=== PATIENT | female | born 1955 | race Hispanic/Latino ===

== ENCOUNTER → 2018-04-24 | Outpatient (CLI) | payer OTHER | END | disposition home or self-care (01) | LOC: RAH 07:31 | PROVIDERS: ATTEND Internal Medicine | DX: Z12.31 Encounter for screening mammogram for malignant neoplasm of breast (principal) | CPT/HCPCS: 77067 ==

== ENCOUNTER → 2018-08-05 | Outpatient (CLI) | payer OTHER | END | disposition home or self-care (01) | LOC: RAH 09:22 | PROVIDERS: ATTEND Internal Medicine | DX: M19.011 Primary osteoarthritis, right shoulder (principal) | CPT/HCPCS: 73030 ==

== ENCOUNTER → 2019-01-13 | Outpatient (CLI) | payer OTHER, MEDICARE | END | disposition home or self-care (01) | LOC: RAH 10:34 | PROVIDERS: ATTEND Internal Medicine | DX: M17.11 Unilateral primary osteoarthritis, right knee (principal); M16.11 Unilateral primary osteoarthritis, right hip; L08.9 Local infection of the skin and subcutaneous tissue, unspecified; T14.8XXD Other injury of unspecified body region, subsequent encounter; X58.XXXD Exposure to other specified factors, subsequent encounter | CPT/HCPCS: 73552; 73562 ==

== ENCOUNTER → 2019-08-30 | Outpatient (CLI) | payer OTHER, MEDICARE | END | disposition home or self-care (01) | LOC: RAH 08:46 | PROVIDERS: ATTEND Internal Medicine | DX: Z12.31 Encounter for screening mammogram for malignant neoplasm of breast (principal); N64.89 Other specified disorders of breast | CPT/HCPCS: 77067 ==

== ENCOUNTER → 2020-01-10 | Outpatient (CLI) | payer OTHER, MEDICARE | END | disposition home or self-care (01) | LOC: RAH 16:33 | PROVIDERS: ATTEND Internal Medicine | DX: M54.9 Dorsalgia, unspecified (principal) ==

== ENCOUNTER 2020-02-27 22:16 | Observation (INO) | payer OTHER, MEDICARE ==
[~2020-02-27] VITALS: Ht 160.2 cm; Wt 90.7 kg
[2020-02-27] MEDS ORDERED: ASPIRIN 81MG TAB.CHEW ONE (22:26)
[2020-02-27] MEDS ORDERED: NITROGLYCERIN 0.4 MG SL TAB SL ONE (22:28)
[2020-02-27] MEDS ORDERED: ACETAMINOPHEN EXTRA STRENGTH 500 MG TABLET ONE (22:28)
[2020-02-27 22:33] LABS: BASOPHILS % (AUTO) 0.6 % (0.0-5.0); EOSINOPHILS % (AUTO) 1.7 % (0.0-8.0); HEMATOCRIT 38.4 % (36-48); LYMPHOCYTES % (AUTO) 38.1 % (21.0-51.0); MEAN CORPUSCULAR HEMOGLOBIN 29.7 pg (27.0-33.0); MEAN CORPUSCULAR HGB CONC 31.8 g/dL (32.0-36.0); MEAN CORPUSCULAR VOLUME 93.4 fL (79-99); MONOCYTES % (AUTO) 6.1 % (3.0-13.0); NEUTROPHILS % (AUTO) 53.1 % (40.0-77.0); PLATELET COUNT (AUTO) 234 K/uL (130-400); RED BLOOD CELL COUNT(AUTO) 4.11 MIL/uL (4.00-5.50); RED CELL DISTRIBUTION WIDTH 12.6 % (11.0-15.5); WHITE BLOOD COUNT (AUTO) 12.9 K/uL (4.8-10.8)
[2020-02-27 22:46] LABS: INR 0.88 (0.85-1.15); PARTIAL THROMBOPLASTIN TIME 25.3 SEC (26.3-35.5); PROTHROMBIN TIME 9.5 SEC (9.6-11.6)
[2020-02-27 22:48] LABS: CREATININE 0.8 mg/dL (0.5-1.5)
[2020-02-27 22:52] LABS: ALBUMIN 3.9 g/dL (3.5-5.0); BILIRUBIN,TOTAL 0.2 mg/dL (0.2-1.0); TOTAL PROTEIN, SERUM 7.5 g/dL (6.0-8.3)
[2020-02-27] MEDS ORDERED: NITROGLYCERIN 1GM/1 INCH PACKET TD ONE (23:37)
[2020-02-28] MEDS ORDERED: NITROGLYCERIN 0.4 MG SL TAB SL PRN
[2020-02-28] MEDS ORDERED: ACETAMINOPHEN 325 MG TAB PO PRN
[2020-02-28 05:23] LABS: HEMATOCRIT 34.1 % (36-48); MEAN CORPUSCULAR HEMOGLOBIN 30.3 pg (27.0-33.0); MEAN CORPUSCULAR HGB CONC 32.6 g/dL (32.0-36.0); MEAN CORPUSCULAR VOLUME 93.2 fL (79-99); RED BLOOD CELL COUNT(AUTO) 3.66 MIL/uL (4.00-5.50); RED CELL DISTRIBUTION WIDTH 12.4 % (11.0-15.5); WHITE BLOOD COUNT (AUTO) 8.6 K/uL (4.8-10.8)
[2020-02-28 05:31] LABS: CREATININE 0.6 mg/dL (0.5-1.5); POTASSIUM 3.7 mmol/L (3.5-5.1)
[2020-02-28] MEDS ORDERED: INSULIN HUMULIN R 100 UNIT/ML 3ML SQ SCH (07:30)
[2020-02-28] MEDS ORDERED: ASPIRIN 325 MG TABLET PO SCH (09:00)
[2020-02-28] MEDS ORDERED: ENOXAPARIN SODIUM 40 MG/0.4 ML SYRINGE SQ SCH (09:00)
[2020-02-28] MEDS ORDERED: MV-M1TAB20 PO (12:31)
[2020-02-28] MEDS ORDERED: METF-446 PO (12:31)
[2020-02-28] MEDS ORDERED: LISI10TA7 PO (12:31)
[2020-02-28] MEDS ORDERED: ATOR10TA69 PO (12:31)
[2020-02-28] MEDS ORDERED: PANT40TA25 PO (12:31)
[2020-02-28] MEDS ORDERED: METO-408 PO (12:31)
[2020-02-28] MEDS ORDERED: ASPI-1012 PO (16:06)
== END 2020-02-28 17:00 | disposition home or self-care (01) ==
LOC: EDH 22:16 → EDHIP 23:52 → UNDOADMOB 23:52
PROVIDERS: ADMIT Internal Medicine; ATTEND Internal Medicine
DX: R07.89 Other chest pain (principal); E11.9 Type 2 diabetes mellitus without complications; E03.9 Hypothyroidism, unspecified; I10 Essential (primary) hypertension; E78.5 Hyperlipidemia, unspecified; G47.30 Sleep apnea, unspecified; I20.9 Angina pectoris, unspecified; Z20.828 Contact with and (suspected) exposure to other viral communicable diseases; Z79.82 Long term (current) use of aspirin; Z79.899 Other long term (current) drug therapy; Z90.710 Acquired absence of both cervix and uterus; Z79.84 Long term (current) use of oral hypoglycemic drugs
CPT/HCPCS: 36415 ×2; 71045; 80048; 80053; 80061; 82550; 82948 ×2; 83690; 83880; 84484 ×4; 85025; 85027; 85610; 85730; 87426; 93005; 99285; G0378 ×2; U0003

== ENCOUNTER → 2020-03-02 | Outpatient (CLI) | payer OTHER, MEDICARE ==
[~2020-03-02] MED LIST: ASPI-1012 PO; ATOR10TA69 PO; LISI10TA7 PO; METF-446 PO; METO-408 PO; MV-M1TAB20 PO; PANT40TA25 PO; REGADENOSON 0.4 MG/5 ML PF SYG IVP SCH
== END | disposition home or self-care (01) ==
LOC: SHCH 09:10
PROVIDERS: ATTEND Internal Medicine Cardiovascular Disease
DX: I20.9 Angina pectoris, unspecified (principal); R06.00 Dyspnea, unspecified; R00.2 Palpitations
CPT/HCPCS: 78452; 93017; 96374; A9500 ×2; J2785

== ENCOUNTER → 2020-11-08 | Outpatient (CLI) | payer OTHER, MEDICARE ==
[~2020-11-08] MED LIST changes: +LISI10TA24 PO; -LISI10TA7 PO; -PANT40TA25 PO; +PANT40TA54 PO; -REGADENOSON 0.4 MG/5 ML PF SYG IVP SCH
== END | disposition home or self-care (01) ==
LOC: RAH 08:28
PROVIDERS: ATTEND Family Medicine
DX: Z12.31 Encounter for screening mammogram for malignant neoplasm of breast (principal)
CPT/HCPCS: 77067

== ENCOUNTER → 2022-04-10 | Outpatient (CLI) | payer OTHER, MEDICARE ==
[~2022-04-10] MED LIST changes: +IOHEXOL 350 MG/ML 100ML INFUS..BTL IV ONE
== END | disposition home or self-care (01) ==
LOC: RAH 10:00
PROVIDERS: ATTEND Internal Medicine Gastroenterology
DX: K76.0 Fatty (change of) liver, not elsewhere classified (principal); I70.0 Atherosclerosis of aorta; I70.8 Atherosclerosis of other arteries; M47.815 Spondylosis without myelopathy or radiculopathy, thoracolumbar region; K57.90 Diverticulosis of intestine, part unspecified, without perforation or abscess without bleeding; Z98.1 Arthrodesis status
CPT/HCPCS: 74178; Q9967

== ENCOUNTER → 2023-01-10 | Outpatient (CLI) | payer OTHER, MEDICARE ==
[~2023-01-10] MED LIST changes: -IOHEXOL 350 MG/ML 100ML INFUS..BTL IV ONE
== END | disposition home or self-care (01) ==
LOC: RAH 10:55
PROVIDERS: ATTEND Internal Medicine
DX: Z12.31 Encounter for screening mammogram for malignant neoplasm of breast (principal)
CPT/HCPCS: 77067

== ENCOUNTER → 2023-03-28 | Outpatient (CLI) | payer OTHER, MEDICARE | END | disposition home or self-care (01) | LOC: RAH 12:30 | PROVIDERS: ATTEND Internal Medicine | DX: I34.0 Nonrheumatic mitral (valve) insufficiency (principal); R53.1 Weakness | CPT/HCPCS: 93306 ==

== ENCOUNTER → 2025-07-20 | Outpatient (CLI) | payer OTHER, MEDICARE ==
[~2025-07-20] MED LIST changes: +IOHEXOL-350 75 ML VIAL IV ONE
--- NOTE | 2025-07-20 21:25 | HMCIMG ---
EXAM: CT SCAN OF THE ABDOMEN AND PELVIS WITH AND WITHOUT CONTRAST Clinical statement: Nonalcoholic fatty liver disease; evaluation of abdomen and pelvis. STUDY PROTOCOL: CT radiation dose protocol was performed in accordance with the principles of ALARA. A multislice CT scan of the abdomen and pelvis was performed before and after intravenous contrast administration with oral contrast and delayed (7-minute) excretory phase imaging. Sections were obtained from the diaphragms to the inguinal region with multiplanar reformations. Study quality is adequate without significant motion or streak artifact. RADIATION DOSE: CTDIvol 44.70 mGy; DLP 2681.70 mGycm. CONTRAST: Intravenous and oral contrast administered. COMPARISON: CT scan of the abdomen and pelvis from 04/10/2022. FINDINGS: LUNG BASE: Visualized lung bases are clear without focal consolidation, pleural effusion, or suspicious pulmonary nodule. LIVER: Liver is normal in size and contour with homogeneous enhancement. Diffuse hepatic hypoattenuation is present, consistent with diffuse fatty infiltration (hepatic steatosis). No focal hepatic lesion, calcification, or biliary ductal dilatation is identified. Portal vein, hepatic veins, and IVC are patent and normal in caliber. GALL BLADDER: Gall bladder is surgically absent. No abnormal fluid collection is seen in the gallbladder fossa. PANCREAS: Pancreas is normal in size, contour, and enhancement. No pancreatic ductal dilatation, peripancreatic fat stranding, or fluid collection. SPLEEN: Spleen is normal in size and demonstrates homogeneous enhancement without focal lesion. ADRENAL GLANDS: Adrenal glands are normal in size and morphology without discrete nodules. KIDNEYS: Kidneys enhance symmetrically without hydronephrosis, nephrolithiasis, or renal mass. Visualized ureters are normal in caliber on excretory phase images without filling defect. STOMACH AND SMALL BOWEL: Stomach is decompressed to mildly distended without focal wall thickening. Small bowel loops are normal in caliber and wall thickness without obstruction or abnormal mural enhancement. COLON AND APPENDIX: Colon is normal in caliber without wall thickening or pericolonic inflammatory change. Appendix is visualized and normal in caliber without periappendiceal fat stranding. PERITONEUM AND MESENTERY: No free intraperitoneal air or free fluid is identified. The mid-abdominal mesentery demonstrates increased attenuation with swelling and multiple small soft tissue nodules, with preserved fat halos around mesenteric vessels and nodulesan appearance consistent with mesenteric panniculitis. No dominant soft tissue mass or encapsulating fibrosis is seen. LYMPHNODES: No pathologically enlarged abdominal or pelvic lymph nodes are identified. VASCULATURE: Abdominal aorta and its major branches are normal in course and caliber without aneurysm or dissection. Portal vein, hepatic veins, and IVC are patent. PELVIC ORGANS: Urinary bladder is appropriately distended with smooth contour and no wall thickening or intraluminal filling defect. Uterus is surgically absent. No adnexal mass or pelvic fluid collection is seen. OSSEOUS STRUCTURES AND SOFT TISSUES: No acute osseous abnormality or suspicious osseous lesion is identified. Bilateral transpedicular screws with an interbody disc spacer are present at L4L5 in expected position. A small fat-containing umbilical hernia is present. Visualized abdominal wall and paraspinal soft tissues are otherwise unremarkable. IMPRESSION: * Diffuse hepatic steatosis, compatible with nonalcoholic fatty liver disease in the appropriate clinical context. Recommend continued management of metabolic risk factors and consideration of noninvasive fibrosis assessment (e.g., elastography, serum fibrosis scores) per hepatology guidelines if not already performed. * Mesenteric panniculitis characterized by increased-attenuation mesenteric fat with small soft tissue nodules and preserved fat halos around vessels and nodules, without dominant mass or pathologic lymphadenopathy. Appearance is benign and stable compared with 04/10/2022, favoring chronic inflammatory panniculitis. In the absence of new or progressive symptoms, no specific short-interval imaging follow-up is required; repeat imaging can be guided by clinical indications or change in symptoms. * Postsurgical changes of cholecystectomy and hysterectomy without CT evidence of complication. * Small fat-containing umbilical hernia without bowel involvement. * No CT evidence of renal mass, nephrolithiasis, obstructive uropathy, appendicitis, bowel obstruction, or other acute intra-abdominal or pelvic pathology. * Compared with the CT abdomen and pelvis from 04/10/2022, mesenteric panniculitis and diffuse hepatic steatosis appear overall stable, with interval cholecystectomy noted and no new acute abnormality identified. /[place]
== END | disposition home or self-care (01) ==
LOC: RAH 09:55
PROVIDERS: ATTEND Family Medicine
DX: K76.0 Fatty (change of) liver, not elsewhere classified (principal); K42.9 Umbilical hernia without obstruction or gangrene; K65.4 Sclerosing mesenteritis; N32.89 Other specified disorders of bladder; R16.0 Hepatomegaly, not elsewhere classified; M47.817 Spondylosis without myelopathy or radiculopathy, lumbosacral region; M25.78 Osteophyte, vertebrae; M51.369 Other intervertebral disc degeneration, lumbar region without mention of lumbar back pain or lower extremity pain; Z90.710 Acquired absence of both cervix and uterus; Z90.49 Acquired absence of other specified parts of digestive tract
CPT/HCPCS: 74178; Q9967